=== PATIENT | male | born 1975 | race African-American/Black ===

== ENCOUNTER 2018-07-07 10:43 | Emergency (ER) | payer OTHER ==
[~2018-07-07] VITALS: Ht 182.9 cm; Wt 73.0 kg
[2018-07-07] MEDS ORDERED: KETOROLAC 30MG/ML VIAL IV STA (11:12)
[2018-07-07] MEDS ORDERED: SODIUM CHLORIDE 0.9% 1,000 ML IV ONE (11:12)
[2018-07-07 11:42] LABS: EOSINOPHILS % 2.3 % (0.0-5.0); HEMATOCRIT. 41.9 % (42.0-52.0); HEMOGLOBIN. 14.4 g/dL (14.0-18.0); LYMPHOCYTES % 44.6 % (20.0-50.0); MEAN CORPUSCULAR HEMOGLOBIN 32.4 pg (28.0-32.0); MEAN CORPUSCULAR VOLUME 94.1 fL (80.0-94.0); MEAN PLATELET VOLUME 7.1 fl (7.4-10.4); MONOCYTES % 6.8 % (2.0-8.0); NEUTROPHILS % 45.3 % (40.0-76.0); PLATELET 232 x1000/uL (130-400); RED BLOOD CELL COUNT 4.46 mill/uL (4.7-6.1); RED CELL DISTRIBUTION WIDTH 13.1 % (11.6-14.6)
[2018-07-07 11:47] LABS: CHLORIDE 105 mEq/L (98-107)
[2018-07-07 11:50] LABS: ETHANOL BLOOD 30 mg/dL
[2018-07-07 13:25] LABS: *AMPHETAMINES SCREEN URINE NEGATIVE (NEGATIVE); *BARBITURATES SCREEN URINE NEGATIVE (NEGATIVE); *BENZODIAZEPINES SCREEN URINE NEGATIVE (NEGATIVE); *COCAINE SCREEN URINE NEGATIVE (NEGATIVE); CANNABINOID URINE SCREEN PRESUMTIVE POSITIVE (NEGATIVE); OPIATES URINE SCREEN NEGATIVE (NEGATIVE); PHENCYCLIDINE URINE SCREEN NEGATIVE (NEGATIVE)
[2018-07-07 13:26] LABS: METHADONE URINE SCREEN NEGATIVE (NEGATIVE)
[2018-07-07 13:34] VITALS: BP 127/77
== END 2018-07-07 13:14 | disposition home or self-care (01) ==
LOC: ER 10:43
DX: F10.129 Alcohol abuse with intoxication, unspecified (principal); R07.89 Other chest pain; F17.200 Nicotine dependence, unspecified, uncomplicated; Y90.1 Blood alcohol level of 20-39 mg/100 ml; Z91.018 Allergy to other foods
CPT/HCPCS: 36415; 71045; 80048; 80305; 80320; 83880; 84484; 85025; 93005; 96374; 99284; J1885; J7030; Z7610; G0480

== ENCOUNTER 2018-09-03 08:31 | Emergency (ER) | payer OTHER ==
[~2018-09-03] VITALS: Ht 182.9 cm; Wt 72.8 kg
[2018-09-03] MEDS ORDERED: KETOROLAC 60MG/2ML VIAL IM STA (09:08)
[2018-09-03 11:07] VITALS: BP 121/81
== END 2018-09-03 11:07 | disposition home or self-care (01) ==
LOC: ER 08:48
DX: M25.531 Pain in right wrist (principal); F12.90 Cannabis use, unspecified, uncomplicated
CPT/HCPCS: 73110; 96372; 99283; J1885

== ENCOUNTER 2018-10-05 12:31 | Emergency (ER) | payer OTHER ==
[~2018-10-05] VITALS: Ht 182.9 cm; Wt 75.0 kg
[2018-10-05 12:32] VITALS: BP 117/77
== END 2018-10-05 14:27 | disposition home or self-care (01) ==
LOC: ER 12:31
DX: S50.02XA Contusion of left elbow, initial encounter (principal); W17.89XA Other fall from one level to another, initial encounter; Y93.89 Activity, other specified; Y92.811 Bus as the place of occurrence of the external cause; F17.210 Nicotine dependence, cigarettes, uncomplicated; F12.90 Cannabis use, unspecified, uncomplicated
CPT/HCPCS: 73080; 99283